=== PATIENT | female | born 1970 ===

== ENCOUNTER 2017-04-19 23:31 | Emergency (ER) | payer OTHER ==
[2017-04-20] MEDS ORDERED: Aspirin 325 mg EC Tablets PO STA (00:14)
--- NOTE | 2017-04-20 00:14 | C.PDOC ---
History Of Present Illness Patient presents to the ER with a complaint of chest pain, feeling anxious, and feeling like her blood pressure is high. Patient is speaking in complete sentences; denies fever, chills, or palpitations. Time Seen by Provider: 04/20/17 00:13 Chief Complaint (Nursing): Chest Pain History Per: Patient History/Exam Limitations: no limitations Onset/Duration Of Symptoms: Hrs Current Symptoms Are (Timing): Still Present Severity: Moderate Pain Scale Rating Of: 4 Associated Symptoms: denies: Nausea, Dyspnea, Syncope Modifying Factors: None Exacerbating Factors: None Alleviating Factors: None Recent travel outside of the [place]: No Past Medical History Reviewed: Historical Data, Nursing Documentation, Vital Signs Vital Signs: Last Vital Signs Temp 98.3 F 04/19/17 23:47 Pulse 70 04/19/17 23:47 Resp 22 04/19/17 23:47 BP 164/72 H 04/19/17 23:47 Pulse Ox 95 04/20/17 00:48 - Medical History PMH: HTN Surgical History: No Surg Hx Family History: States: No Known Family Hx - Social History Hx Alcohol Use: No Hx Substance Use: No - Immunization History Hx Tetanus Toxoid Vaccination: No Hx Influenza Vaccination: No Hx Pneumococcal Vaccination: No Review Of Systems Constitutional: Negative for: Fever, Chills Cardiovascular: Positive for: Chest Pain. Negative for: Palpitations Psych: Positive for: Anxiety Physical Exam - Physical Exam Appears: Non-toxic, No Acute Distress, Other (Anxious) Skin: Warm, Dry Head: Normacephalic Eye(s): bilateral: Normal Inspection Oral Mucosa: Moist Neck: Supple Chest: Symmetrical, No Tenderness Cardiovascular: Rhythm Regular, No Murmur Respiratory: No Rales, No Rhonchi, No Wheezing Gastrointestinal/Abdominal: Soft, No Tenderness Back: No CVA Tenderness Extremity: No Tenderness Extremity: Bilateral: Atraumatic Pulses: Left Dorsalis Pedis: Normal, Right Dorsalis Pedis: Normal Neurological/Psych: Oriented x3, Normal Speech, Normal Cognition Gait: Steady ED Course And Treatment - Laboratory Results Result Diagrams: 04/20/17 00:27 04/20/17 00:27 ECG: Interpreted By Me, Viewed By Me ECG Rhythm: Sinus Rhythm (66), ST/T Changes (inf lat) O2 Sat by Pulse Oximetry: 95 Pulse Ox Interpretation: Normal - Radiology CXR: Interpreted by Me, Viewed By Me CXR Interpretation: Yes: Other (breast implants). No: Infiltrates, Fracture, Pnemothorax Progress Note: cardiac work up, asa Reevaluation Time: 01:53 Reassessment Condition: Improved Medical Decision Making Medical Decision Making: Upon provider reevaluation patient is feeling better, is medically stable, and requires no further treatment in the ED at this time. Patient will be discharged home with Rx for albuterol . Counseling was provided and all questions were answered regarding diagnosis and need for follow up with the referred clinic. There is agreement to discharge plan. Return if symptoms persist or worsen. I considered the following diagnoses: acute coronary syndrome, pulmonary embolism, lower respiratory infection, aortic dissection/aneurysm, pneumothorax , pericarditis, esophagitis/GERD, zoster and esophageal rupture but found them to be unlikely based on the history, physical exam, and diagnostics. My conclusions regarding the unlikely diagnoses were based on: the absence of significant EKG abnormalities, the lack of suggestive x-ray findings, the absence of significant abnormalities on cardiac monitoring, the absence of asymmetric pulses. Pt feels much better. no cp, and wants to go home Disposition Counseled Patient/Family Regarding: Studies Performed, Diagnosis, Need For Followup, Rx Given - Disposition Referrals: [facility] at [facility] [Outside] Disposition: HOME/ ROUTINE Disposition Time: 00:14 Condition: FAIR Prescriptions: Albuterol 0.083% [Albuterol Sulfate 3 Ml] 3 ml IH QID PRN #50 neb PRN Reason: Wheezing Instructions: Asthma (DC), Anxiety (ED) Print Language: UZBEK - Clinical Impression Clinical Impression: Asthma, Anxiety, Chest pain - Scribe Statement The provider has reviewed the documentation as recorded by the Scribpoli Uribe All medical record entries made by the Scribe were at my direction and personally dictated by me. I have reviewed the chart and agree that the record accurately reflects my personal performance of the history, physical exam, medical decision making, and the department course for this patient. I have also personally directed, reviewed, and agree with the discharge instructions and disposition.
[2017-04-20 00:34] LABS: BASO % 0.4 % (0.0-2.0); EOS # 0.1 K/uL (0.0-0.7); EOS % 1.3 % (0.0-4.0); LYMPH # 2.4 K/uL (1.0-4.3); LYMPH % 24.4 % (20.0-40.0); MEAN CELL VOLUME 84.5 fL (81.0-99.0); MEAN CORPUSCULAR HEMOGLOBIN 27.6 pg (27.0-31.0); MEAN CORPUSCULAR HGB CONC 32.6 g/dL (33.0-37.0); MEAN PLATELET VOLUME 9.2 fL (7.2-11.7); MONO # 0.7 K/uL (0.0-0.8); MONO % 7.2 % (0.0-10.0); NEUT # 6.6 K/uL (1.8-7.0); NEUT % 66.7 % (50.0-75.0); RBC 3.98 Mil/uL (3.80-5.20); RED CELL DISTRIBUTION WIDTH 17.8 % (11.5-14.5); WHITE BLOOD COUNT 9.9 K/uL (4.8-10.8)
[2017-04-20] MEDS ORDERED: Aspirin 325 mg EC Tablets PO ONE (00:34)
[2017-04-20 00:39] LABS: INR 1.1; PROTHROMBIN TIME 12.2 SECONDS (9.7-12.2)
[2017-04-20 00:55] LABS: ALBUMIN 4.3 g/dL (3.5-5.0)
[2017-04-20 00:58] LABS: ALB/GLOB RATIO 1.2 (1.0-2.1); ALT/SGPT 13 U/L (9-52); AST/SGOT 25 U/L (14-36); BLOOD UREA NITROGEN 19 mg/dL (7-17); GFR AFRICAN-AMERICAN > 60; GFR NON-AFRICAN AMERICAN > 60
[2017-04-20 01:00] LABS: B-TYPE NATRIURETIC PEPTIDE 91.6 pg/mL (0-450)
[2017-04-20] MEDS ORDERED: Albuterol-Ipratrop 3 mg / 0.5 (3 ml) UD IH STA (01:16)
[2017-04-20 02:05] VITALS: BP 119/72; PULSE 65; RESP 16; TEMP 97; O2SAT 97
--- NOTE | 2017-04-20 07:07 | RAD ---
HISTORY: chest pain COMPARISON: No prior. TECHNIQUE: Chest PA and lateral FINDINGS: LUNGS: Prominent bibasilar breast and nipple shadows. Mild venous congestion. PLEURA: No significant pleural effusion identified. No pneumothorax apparent. CARDIOVASCULAR: Normal. OSSEOUS STRUCTURES: No significant abnormalities. VISUALIZED UPPER ABDOMEN: Normal. OTHER FINDINGS: None. IMPRESSION: Prominent bibasilar breast and nipple shadows. Mild venous congestion.
--- NOTE | 2017-04-21 13:38 | CARD ---
APPROVED REPORT EKG Measurement Heart [id number] <Conclusion> Normal sinus rhythm T wave abnormality, consider inferolateral ischemia Abnormal ECG
== END 2017-04-20 02:05 | disposition home or self-care (01) ==
LOC: C.ER 23:31
DX: J45.909 Unspecified asthma, uncomplicated (principal); F41.9 Anxiety disorder, unspecified; R07.9 Chest pain, unspecified

== ENCOUNTER 2019-03-02 09:17 | Emergency (ER) | payer OTHER ==
[2019-03-02] MEDS ORDERED: Aluminum Hydroxide/Magnesium Hydroxide Susp (30 mL) ONE (09:44)
[2019-03-02] MEDS ORDERED: Sodium Chloride 0.9% 1,000 ML IV ONE (11:07)
[2019-03-02 11:18] LABS: BASO # 0.1 K/uL (0.0-0.2); BASO % 1.2 % (0.0-2.0); EOS # 0.2 K/uL (0.0-0.7); EOS % 3.4 % (0.0-4.0); HEMOGLOBIN 11.6 g/dL (11.0-16.0); LYMPH # 2.1 K/uL (1.0-4.3); LYMPH % 44.1 % (20.0-40.0); MEAN CELL VOLUME 82.7 fL (81.0-99.0); MEAN CORPUSCULAR HEMOGLOBIN 26.8 pg (27.0-31.0); MEAN CORPUSCULAR HGB CONC 32.4 g/dL (33.0-37.0); MEAN PLATELET VOLUME 9.5 fL (7.2-11.7); MONO # 0.4 K/uL (0.0-0.8); MONO % 8.4 % (0.0-10.0); NEUT # 2.1 K/uL (1.8-7.0); NEUT % 42.9 % (50.0-75.0); NRBC % 0.1 % (0.0-2.0); RBC 4.34 Mil/uL (3.80-5.20); RED CELL DISTRIBUTION WIDTH 19.5 % (11.5-14.5); WHITE BLOOD COUNT 4.8 K/uL (4.8-10.8)
[2019-03-02 11:22] LABS: SQUAMOUS EPITHIAL 14 /hpf (0-5); URINE BILIRUBIN NEGATIVE (NEGATIVE); URINE BLOOD NEGATIVE (NEGATIVE); URINE CLARITY Hazy (Clear); URINE COLOR Yellow (YELLOW); URINE GLUCOSE (UA) NORMAL (Normal); URINE LEUKOCYTE ESTERASE 1+ Leu/uL (Negative); URINE PROTEIN NEGATIVE (NEGATIVE); URINE UROBILINOGEN NORMAL mg/dL (0.2-1.0)
[2019-03-02 11:31] LABS: ALB/GLOB RATIO 1.4 (1.0-2.1); ALBUMIN 4.6 g/dL (3.5-5.0); ALT/SGPT 47 U/L (9-52); AST/SGOT 73 U/L (14-36); BLOOD UREA NITROGEN 17 mg/dL (7-17); GFR NON-AFRICAN AMERICAN > 60; LIPASE 66 U/L (23-300)
--- NOTE | 2019-03-02 13:46 | C.PDOC ---
History Of Present Illness 48 y/o female presents to the ER complaining of intermittent lower abdominal pain which has been present for the past few days. Patient states that she history of ovarian cyst which was diagnosed in [place]. Patient reports that she also has history of HTN but she is not taking medications for six years. Denies having fever, chills, nausea, vomiting, dysuria, and hematuria. Time Seen by Provider: 03/02/19 10:02 Chief Complaint (Nursing): Abdominal Pain History Per: Patient History/Exam Limitations: no limitations Onset/Duration Of Symptoms: Days Current Symptoms Are (Timing): Still Present Severity: Moderate Past Medical History Reviewed: Historical Data, Nursing Documentation, Vital Signs Vital Signs: Last Vital Signs Temp 97.9 F 03/02/19 10:16 Pulse 66 03/02/19 13:33 Resp 15 03/02/19 13:33 BP 176/95 H 03/02/19 13:33 Pulse Ox 98 03/02/19 13:33 Primary Care Provider: FAMILY PROVIDER,NO - Medical History PMH: HTN Other Surgeries: Hx of surgeries Family History: States: No Known Family Hx - Social History Hx Alcohol Use: No Hx Substance Use: No - Immunization History Hx Tetanus Toxoid Vaccination: No Hx Influenza Vaccination: No Hx Pneumococcal Vaccination: No Review Of Systems Except As Marked, All Systems Reviewed And Found Negative. Constitutional: Negative for: Fever, Chills Gastrointestinal: Positive for: Abdominal Pain. Negative for: Nausea, Vomiting, Diarrhea Genitourinary: Negative for: Dysuria, Hematuria, Vaginal Bleeding Physical Exam - Physical Exam Appears: Non-toxic, No Acute Distress Skin: Normal Color, Warm, Dry Head: Atraumatic, Normacephalic Eye(s): bilateral: Normal Inspection, PERRL, EOMI Nose: Normal Oral Mucosa: Moist Neck: Normal ROM, Supple Chest: Symmetrical Cardiovascular: Rhythm Regular Respiratory: Normal Breath Sounds, No Rales, No Rhonchi, No Wheezing Gastrointestinal/Abdominal: Bowel Sounds, Soft, Tenderness (LLQ tenderness), No Guarding, No Rebound Back: No CVA Tenderness Neurological/Psych: Oriented x3, Normal Speech, Normal Cognition, Normal Motor, Normal Sensation ED Course And Treatment - Laboratory Results Result Diagrams: 03/02/19 11:15 03/02/19 11:15 Lab Results: Total Bilirubin 0.5 mg/dL (0.2-1.3) 05/21/19 11:15 AST 73 U/L (14-36) H 03/02/19 11:15 ALT 47 U/L (9-52) 03/02/19 11:15 Alkaline Phosphatase 78 U/L (38-126) 03/02/19 11:15 Total Protein 7.8 g/dL (6.3-8.3) 03/02/19 11:15 Albumin 4.6 g/dL (3.5-5.0) 03/02/19 11:15 Globulin 3.3 gm/dL (2.2-3.9) 03/02/19 11:15 Albumin/Globulin Ratio 1.4 (1.0-2.1) 03/02/19 11:15 Lipase 66 U/L (23-300) 03/02/19 11:15 Urine Color Yellow (YELLOW) 03/02/19 11:15 Urine Clarity Hazy (Clear) 03/02/19 11:15 Urine pH 7.0 (5.0-8.0) 03/02/19 11:15 Ur Specific [place] 1.019 (1.003-1.030) 03/02/19 11:15 Urine Protein Negative mg/dL (NEGATIVE) 03/02/19 11:15 Urine Glucose (UA) Normal mg/dL (Normal) 03/02/19 11:15 Urine Ketones Negative mg/dL (NEGATIVE) 03/02/19 11:15 Urine Blood Negative (NEGATIVE) 03/02/19 11:15 Urine Nitrate Negative (NEGATIVE) 03/02/19 11:15 Urine Bilirubin Negative (NEGATIVE) 03/02/19 11:15 Urine Urobilinogen Normal mg/dL (0.2-1.0) 03/02/19 11:15 Ur Leukocyte Esterase 1+ Stephanie/uL (Negative) H 03/02/19 11:15 Urine WBC (Auto) 9 /hpf (0-5) H 03/02/19 11:15 Urine RBC (Auto) 2 /hpf (0-3) 03/02/19 11:15 Ur Squamous Epith Cells 14 /hpf (0-5) H 03/02/19 11:15 Beta HCG, Quant < 2.39 mIU/ML 03/02/19 11:15 O2 Sat by Pulse Oximetry: 98 (RA) Pulse Ox Interpretation: Normal Medical Decision Making Medical Decision Making: Plan: --Labs --UA --EKG --IV Fluids --Hydralazine IV Disposition Counseled Patient/Family Regarding: Studies Performed, Diagnosis, Need For Foll owup - Disposition Referrals: [facility] at [facility] [Outside] Disposition: HOME/ ROUTINE Disposition Time: 15:07 Condition: IMPROVED Instructions: High Blood Pressure (DC), Acute Abdomen (Belly Pain), Adult (DC) Forms: Gen Discharge Inst Belarusian, [employer] (Belarusian) Print Language: LATVIAN - POA Present On Arrival: None - Clinical Impression Clinical Impression: Abdominal pain, Hypertension, Non compliance with medical treatment - Scribe Statement The provider has reviewed the documentation as recorded by the Rafaelibpoli Aviles Provider Attestation: All medical record entries made by the Rafaelibe were at my direction and personally dictated by me. I have reviewed the chart and agree that the record accurately reflects my personal performance of the history, physical exam, medical decision making, and the department course for this patient. I have also personally directed, reviewed, and agree with the discharge instructions and disposition.
[2019-03-02 15:00] VITALS: O2SAT 98
[2019-03-02 15:21] VITALS: BP 157/88; PULSE 77; RESP 16; TEMP 98
--- NOTE | 2019-03-04 00:05 | CARD ---
APPROVED REPORT Date of service: 03/02/2019 EKG Measurement Heart [id number] <Conclusion> Normal sinus rhythm Possible Left atrial enlargement Left ventricular hypertrophy with repolarization abnormality Abnormal ECG
== END 2019-03-02 15:21 | disposition home or self-care (01) ==
LOC: C.ER 09:17
DX: R10.9 Unspecified abdominal pain (principal); I10 Essential (primary) hypertension; Z91.14 Patient's other noncompliance with medication regimen
CPT/HCPCS: 80053; 81001; 83690; 84702; 85025; 93005; 96374; 96376; 99285; J0360; J7030

== ENCOUNTER 2019-03-02 17:06 | Observation (INO) | payer SELFPAY ==
[2019-03-02 17:12] VITALS: BMI 27.4
[2019-03-02] MEDS ORDERED: Sodium Chloride 0.9% 1,000 ML IV ONE (17:34)
[2019-03-02] MEDS ORDERED: Sodium Chloride 0.9% 1,000 ML ONE (17:49)
[2019-03-02 18:09] LABS: BASO % 0.5 % (0.0-2.0); EOS # 0.1 K/uL (0.0-0.7); EOS % 0.9 % (0.0-4.0); HEMOGLOBIN 13.5 g/dL (11.0-16.0); LYMPH # 1.8 K/uL (1.0-4.3); LYMPH % 18.4 % (20.0-40.0); MEAN CELL VOLUME 84.4 fL (81.0-99.0); MEAN CORPUSCULAR HEMOGLOBIN 27.3 pg (27.0-31.0); MEAN CORPUSCULAR HGB CONC 32.3 g/dL (33.0-37.0); MEAN PLATELET VOLUME 9.4 fL (7.2-11.7); MONO # 0.5 K/uL (0.0-0.8); MONO % 5.5 % (0.0-10.0); NEUT # 7.1 K/uL (1.8-7.0); NEUT % 74.7 % (50.0-75.0); RBC 4.95 Mil/uL (3.80-5.20); RED CELL DISTRIBUTION WIDTH 19.9 % (11.5-14.5)
[2019-03-02 18:23] LABS: WHITE BLOOD COUNT 9.5 K/uL (4.8-10.8)
[2019-03-02 18:31] LABS: ALB/GLOB RATIO 1.4 (1.0-2.1); ALBUMIN 5.3 g/dL (3.5-5.0); ALT/SGPT 50 U/L (9-52); AST/SGOT 82 U/L (14-36); BLOOD UREA NITROGEN 15 mg/dL (7-17); CALCIUM 9.6 mg/dl (8.6-10.4); GFR NON-AFRICAN AMERICAN > 60; LIPASE 62 U/L (23-300)
--- NOTE | 2019-03-02 18:47 | C.PDOC ---
History Of Present Illness 48 y/o female,w/PMhx of HTN non compliant w/meds, presents to the ER for evaluation of frontal headache and dizziness which began after she was discharged from ER today.Patient was evaluated for abdominal pain in ER and discharged today. Upon discharge patient had no c/o abdominal pain or headache. Patient reports that she was standing at the bus stop when she began feeling dizzy and fell to the ground.Then, she started to vomit. Patient states lower abdominal pain has returned. Patient denies having head injury, LOC, neck pa in/stiffness, fever,chills, urinary symptoms, vaginal discharge or other complaints at this time. Time Seen by Provider: 03/02/19 17:33 Chief Complaint (Nursing): GI Problem History Per: Patient History/Exam Limitations: no limitations Onset/Duration Of Symptoms: Mins Current Symptoms Are (Timing): Still Present Severity: Moderate Past Medical History Reviewed: Historical Data, Nursing Documentation, Vital Signs Vital Signs: Last Vital Signs Temp 97.4 F L 03/02/19 17:12 Pulse 64 03/02/19 17:12 Resp 18 03/02/19 17:12 BP 216/111 H 03/02/19 17:12 Pulse Ox 97 03/02/19 17:12 Primary Care Provider: FAMILY PROVIDER,NO - Medical History PMH: HTN Other Surgeries: Hx of surgeries Family History: States: No Known Family Hx - Social History Hx Alcohol Use: No Hx Substance Use: No - Immunization History Hx Tetanus Toxoid Vaccination: No Hx Influenza Vaccination: No Hx Pneumococcal Vaccination: No Review Of Systems Except As Marked, All Systems Reviewed And Found Negative. Constitutional: Negative for: Fever, Chills Cardiovascular: Negative for: Chest Pain Respiratory: Negative for: Shortness of Breath Gastrointestinal: Positive for: Vomiting, Abdominal Pain Neurological: Positive for: Headache, Dizziness Physical Exam - Physical Exam Appears: Well, Non-toxic, No Acute Distress Skin: Normal Color, Warm, Dry Head: Atraumatic, Normacephalic Eye(s): bilateral: Normal Inspection, PERRL, EOMI Nose: Normal Oral Mucosa: Moist Neck: Normal ROM, Supple Chest: Symmetrical Cardiovascular: Rhythm Regular, No Murmur Respiratory: Normal Breath Sounds, No Rales, No Rhonchi, No Wheezing Gastrointestinal/Abdominal: Soft, Tenderness (mild lower abdominal tenderness to deep palpation), No Guarding, No Rebound Back: No CVA Tenderness Extremity: Normal ROM, No Pedal Edema Neurological/Psych: Oriented x3, Normal Speech, Normal Cognition, Normal Cranial Nerves, No Cerebellar Signs, Normal Motor, Normal Sensation Gait: Steady ED Course And Treatment - Laboratory Results Result Diagrams: 03/02/19 18:03 03/02/19 18:03 Lab Results: Troponin I < 0.0120 ng/mL (0.00-0.120) 03/02/19 18:03 Total Bilirubin 0.9 mg/dL (0.2-1.3) 03/02/19 18:03 AST 82 U/L (14-36) H 03/02/19 18:03 ALT 50 U/L (9-52) 03/02/19 18:03 Alkaline Phosphatase 104 U/L (38-126) 03/02/19 18:03 Total Protein 9.2 g/dL (6.3-8.3) H 03/02/19 18:03 Albumin 5.3 g/dL (3.5-5.0) H 03/02/19 18:03 Globulin 3.9 gm/dL (2.2-3.9) 03/02/19 18:03 Albumin/Globulin Ratio 1.4 (1.0-2.1) 03/02/19 18:03 Lipase 62 U/L (23-300) 03/02/19 18:03 ECG: Interpreted By Me ECG Interpretation: Abnormal Interpretation Of ECG: LVH w/repol abnormalities Rate From EC O2 Sat by Pulse Oximetry: 97 (RA) Pulse Ox Interpretation: Normal Medical Decision Making Medical Decision Making: Plan: --Labs --UA --CXR --US --IV Fluids --Toradol IV --Zofran IV --Hydralazine IV -- reassess 19:30 Patient signed out to Dr. Schulz pending CT head, pelvic ultrasound, reassessment and disposition. Disposition Counseled Patient/Family Regarding: Studies Performed, Diagnosis - Disposition Disposition Time: 19:30 Condition: STABLE Forms: [facility] (Azeri) - Clinical Impression Clinical Impression: Abdominal pain, Uncontrolled hypertension, Dizziness - Scribe Statement The provider has reviewed the documentation as recorded by the Damaso Aviles Provider Attestation: All medical record entries made by the Rafaelibpoli were at my direction and personally dictated by me. I have reviewed the chart and agree that the record accurately reflects my personal performance of the history, physical exam, medical decision making, and the department course for this patient. I have also personally directed, reviewed, and agree with the discharge instructions and disposition.
[2019-03-02] MEDS ORDERED: Potassium Chloride 20 mEq/15 ml LIQ UD PO STA (22:01)
--- NOTE | 2019-03-02 22:07 | CP.PCM.CON ---
History of Present Illness - History of Present Illness History of Present Illness: Asked to see this patient by DR. Kirkpatrick: 1.43 cm left ovarian cyst, LLQ pain. Patient received in E.D. Bed#7, sister present, being evaluated by primary Medical Team, in no apparent distress 48 y.o. , LMP 01/20/19 x 1 day, admitted for management of HTN (second visit to E.D. in 24 hours) - elevated BP 184/96 at time of my evaluation in the setting of headache and dizziness. Patient reports (+) nausea, vomiting - good appetite. Normal BM; no report of diarrhea or constipation. Reports LLQ pain x 1 day, described as pain similar to mentrual cramps, pain scale 10/10 earlier today; now improved. TV ultrasound: uterus, 10 x 5 x 6.16 cm, no fibroids; endometrium 1.15cm. Left ovary 3 x 2.21 x 2.53cm with 1.43 x 0.86 [address], "free fluid in right adnexa". Right ovary not seen. P OB: C/Sx1, 1997, female; x 3: 1999, male; 2001, male; 2009, female. NO complications. P STUDIO PRODUCER: 10 x monthly x 4. Denies h/o fibroids; told of ovarian cyst 1 year ago. Denies h/o STIs or abnormal Pap. Last Pap and mammogram - 1 year ago - [place]. (+) hot flashes and sweats x 1 year. Menses irregular x 1 year - every one to 2 or 3 months; lasting only 1 day. PMH: HTN, diagnosed approx 2010 PSH: C/S. "tummy tuck" with breast augmentation, 2009. Meds: doesn't recall name of anti-hypertensive NKDA Soc Hx: denies tobaco, illicit drug or EtOH use. x 1 year; with same partner 19 years. Homemaker Fam Hx: mother age 92 - complicaitonsof HTN. Father age 73 - colon CA. Review of Systems - Review of Systems All systems: reviewed and no additional remarkable complaints except - Gastrointestinal Gastrointestinal: As Per HPI Past Patient History - Infectious Disease Hx of Infectious Diseases: None - Past Medical History & Family History Past Medical History?: No Pertinent Family History: Mother - HTN Father - colon cancer - Past Social History Smoking Status: Never Smoked - CARDIAC Hx Hypertension: Yes - PSYCHIATRIC Hx Substance Use: No - SURGICAL HISTORY Hx Surgeries: Yes Other/Comment: Breast augmentation, abdominoplasty/ tummy tuck. Meds Allergies/Adverse Reactions: Allergies Allergy/AdvReac Type Severity Reaction Status Date / Time No Known Allergies Allergy Verified 03/02/19 17:11 - Medications Medications: Current Medications Diltiazem HCl (Cardizem) 10 mg IVP STAT STA Stop: 03/02/19 21:47 Physical Exam - Constitutional Appears: Well, No Acute Distress - Head Exam Head Exam: NORMAL INSPECTION, NORMOCEPHALIC - ENT Exam ENT Exam: Mucous Membranes Moist - Neck Exam Neck exam: Positive for: Full Rom - Respiratory Exam Respiratory Exam: NORMAL BREATHING PATTERN - Cardiovascular Exam Cardiovascular Exam: REGULAR RHYTHM - GI/Abdominal Exam GI & Abdominal Exam: Normal Bowel Sounds (Minimal LLQ pain to deep palpation; no rebound or guarding), Soft - Rectal Exam Rectal Exam: Deferred - Exam External exam: NORMAL EXTERNAL EXAM Results - Vital Signs Recent Vital Signs: Last Vital Signs Temp 97.4 F L 03/02/19 17:12 Pulse 71 03/02/19 21:04 Resp 16 03/02/19 21:04 BP 180/96 H 03/02/19 21:04 Pulse Ox 99 03/02/19 21:04 - Labs Result Diagrams: 03/02/19 18:03 03/02/19 18:03 Labs: Laboratory Results - last 24 hr 03/02/19 03/02/19 18:03 18:03 WBC 9.5 D RBC 4.95 Hgb 13.5 Hct 41.8 MCV 84.4 MCH 27.3 MCHC 32.3 L RDW 19.9 H Plt Count 386 MPV 9.4 Neut % (Auto) 74.7 Lymph % (Auto) 18.4 L [place] % (Auto) 5.5 Eos % (Auto) 0.9 Baso % (Auto) 0.5 Neut # (Auto) 7.1 H Lymph # (Auto) 1.8 [place] # (Auto) 0.5 Eos # (Auto) 0.1 Baso # (Auto) 0.0 Sodium 140 Potassium 3.4 L Chloride 101 Carbon Dioxide 24 Anion Gap 19 BUN 15 Creatinine 0.8 Est GFR ( Amer) > 60 Est GFR (Non-Af Amer) > 60 Random Glucose 177 H D Calcium 9.6 Total Bilirubin 0.9 AST 82 H ALT 50 Alkaline Phosphatase 104 Troponin I < 0.0120 Total Protein 9.2 H Albumin 5.3 H Globulin 3.9 Albumin/Globulin Ratio 1.4 Lipase 62 Assessment & Plan - Assessment and Plan (Free Text) Assessment: :Laboratory results and ultrasound reports reviewed by me personally Assessment: 48 y.o. P4, uncontrolled HTN - admitted for management of same, with headache. Patient is perimenopausal, with incidental finding small left ovarian cyst, small amount of free fluid. LLQ pain most likely due to probable menses onset suggested by thickened endometrium. No acute fire protection engineer intervention indicated at this time. Patient is clinically stable; advised to follow up with STUDIO PRODUCER as outpatient upon discharge. Patient has received fire protection engineer care to date in [place]. Consider referral to associated clinics - [facility], [facility], private STUDIO PRODUCER, etc. Plan: 1) as per primary medical team 2) Re-consult, if indicated Thank you for the pleasure of this consultation. - Date & Time Date: 03/02/19 Time: 22:19
--- NOTE | 2019-03-02 22:11 | CP.PCM.HP ---
<Amor Mckeon - Last Filed: 03/02/19 23:08> History of Present Illness - History of Present Illness History of Present Illness: 48F presents to the ER for second time today complaining of Headaches, dizziness, hazy vision/aura and photosensitivity. Pt recieved Hydralizine x2 and had some improvement, was discharged but then had an acute recurrence of the headache when getting on the bus. Pt returned with an SBP of over 200 and was given Hydralazine 20 IVP which gave her minor relief. Pt also reports minor relief with the Toradol. Pt had came in earlier today also complaining of lower abdominal pain which has now resolved. Patient states that she history of ovarian cyst which was diagnosed in [place]. Patient reports that she also has history of HTN but she is not taking medications. ROS Pos+ Headache, Dizziness, Aura, hazy vision, photosensitivity, medication non compliance, poor medical follow up Neg- Nausea, Vomiting, syncope, memory/mood changes, fevers, chills, chest pain, SOB, medication changes, sick contacts, numbness, tingling, speech changes, facial droop, hallucinations. PMH: HTN dx 2010 PSH: abdominoplasty with breast augmentation, 2009. Allergies: Denies Soc Hx: denies tobaco/drugs/EtOH Fam Hx: Mom HTN, Dad Colon CA Present on Admission - Present on Admission Any Indicators Present on Admission: No Review of Systems - Review of Systems All systems: reviewed and no additional remarkable complaints except (as per HPI) Past Patient History - Past Social History Smoking Status: Never Smoked - CARDIAC Hx Hypertension: Yes - PSYCHIATRIC Hx Substance Use: No - SURGICAL HISTORY Hx Surgeries: Yes Other/Comment: Breast augmentation, abdominoplasty/ tummy tuck. Meds Allergies/Adverse Reactions: Allergies Allergy/AdvReac Type Severity Reaction Status Date / Time No Known Allergies Allergy Verified 03/02/19 17:11 Physical Exam - Constitutional Appears: Non-toxic, No Acute Distress - Head Exam Head Exam: ATRAUMATIC, NORMAL INSPECTION Additional comments: pain with jose temporalis and frontalis palpation/ compression - Eye Exam Eye Exam: EOMI, Normal appearance, PERRL. absent: Nystagmus, Scleral icterus Pupil Exam: PERRL - ENT Exam ENT Exam: Mucous Membranes Moist - Neck Exam Neck exam: Positive for: Normal Inspection. Negative for: Meningismus - Respiratory Exam Respiratory Exam: Clear to Auscultation Bilateral, NORMAL BREATHING PATTERN. absent: Wheezes - Cardiovascular Exam Cardiovascular Exam: RRR, +S1, +S2 - GI/Abdominal Exam GI & Abdominal Exam: Soft. absent: Distended, Tenderness - Exam Additional comments: no adenexal tenderness - Extremities Exam Extremities exam: Positive for: normal inspection, pedal pulses present. Negative for: pedal edema, tenderness - Neurological Exam Neurological exam: Alert, CN II-XII Intact, Oriented x3 Additional comments: neg head impulse sign pos photosensitivity sensation intact no facial droop - Psychiatric Exam Psychiatric exam: Normal Affect, Normal Mood - Skin Skin Exam: Dry, Intact, Normal Color, Warm Results - Vital Signs Recent Vital Signs: Last Vital Signs Temp 97.4 F L 03/02/19 17:12 Pulse 71 03/02/19 21:04 Resp 16 03/02/19 21:04 BP 180/96 H 03/02/19 21:04 Pulse Ox 99 03/02/19 21:04 - Labs Result Diagrams: 03/02/19 18:03 03/02/19 18:03 Labs: Laboratory Results - last 24 hr 03/02/19 03/02/19 18:03 18:03 WBC 9.5 D RBC 4.95 Hgb 13.5 Hct 41.8 MCV 84.4 MCH 27.3 MCHC 32.3 L RDW 19.9 H Plt Count 386 MPV 9.4 Neut % (Auto) 74.7 Lymph % (Auto) 18.4 L Sharp % (Auto) 5.5 Eos % (Auto) 0.9 Baso % (Auto) 0.5 Neut # (Auto) 7.1 H Lymph # (Auto) 1.8 Sharp # (Auto) 0.5 Eos # (Auto) 0.1 Baso # (Auto) 0.0 Sodium 140 Potassium 3.4 L Chloride 101 Carbon Dioxide 24 Anion Gap 19 BUN 15 Creatinine 0.8 Est GFR ( Amer) > 60 Est GFR (Non-Af Amer) > 60 Random Glucose 177 H D Calcium 9.6 Total Bilirubin 0.9 AST 82 H ALT 50 Alkaline Phosphatase 104 Troponin I < 0.0120 Total Protein 9.2 H Albumin 5.3 H Globulin 3.9 Albumin/Globulin Ratio 1.4 Lipase 62 Assessment & Plan - Assessment and Plan (Free Text) Assessment: 48F admitted for acute hypertensive urgency and migraine Plan: Hypertensive Urgency Hydralazine total 40mg given Cardizem 10mg IVP once Lopressor 5mg for SBP >160 or HR above 100 Monitor Migraine w/ Aura Indomethicin 50mg STAT PO given, Pt improved markedly Toradol 30 IVP q[address]: f/u report LLQ Pain, Ovarian Cyst Dr Porras [facility] consulted ovarian cyst, small amount of free fluid. LLQ pain most likely due to probable menses onset suggested by thickened endometrium. No acute lapidarist intervention indicated at this time. Zofran 4mg q4 IVP prn nausea/abd pain TransVag US: f/u report Hypokalemia 40meq KCL given f/u CMP Non-Compliance f/u UDS, TSH, Lipids, A1C Pt educated on establishing care at [facility] PPx HHD No Anticoag at this time no GI ppx at this time CK PGY1 d/w Dr Kirkpatrick <Zohaib Kirkpatrick N - Last Filed: 03/03/19 04:42> Results - Vital Signs Recent Vital Signs: Last Vital Signs Temp 97.9 F 03/02/19 23:15 Pulse 65 03/03/19 01:00 Resp 20 03/02/19 23:15 BP 172/86 H 03/02/19 23:15 Pulse Ox 97 03/02/19 23:15 - Labs Result Diagrams: 03/02/19 18:03 03/02/19 18:03 Labs: Laboratory Results - last 24 hr 03/02/19 03/02/19 03/03/19 18:03 18:03 01:02 WBC 9.5 D RBC 4.95 Hgb 13.5 Hct 41.8 MCV 84.4 MCH 27.3 MCHC 32.3 L RDW 19.9 H Plt Count 386 MPV 9.4 Neut % (Auto) 74.7 Lymph % (Auto) 18.4 L Sharp % (Auto) 5.5 Eos % (Auto) 0.9 Baso % (Auto) 0.5 Neut # (Auto) 7.1 H Lymph # (Auto) 1.8 Sharp # (Auto) 0.5 Eos # (Auto) 0.1 Baso # (Auto) 0.0 ESR 14 Sodium 140 Potassium 3.4 L Chloride 101 Carbon Dioxide 24 Anion Gap 19 BUN 15 Creatinine 0.8 Est GFR ( Amer) > 60 Est GFR (Non-Af Amer) > 60 Random Glucose 177 H D Calcium 9.6 Total Bilirubin 0.9 AST 82 H ALT 50 Alkaline Phosphatase 104 Troponin I < 0.0120 Total Protein 9.2 H Albumin 5.3 H Globulin 3.9 Albumin/Globulin Ratio 1.4 Lipase 62 Attending/Attestation - Attestation I have fully participated in the care of the patient.: Yes I have reviewed all pertinent clinical information: Yes Notes (Text): 03/03/19 04:42 pt was seen and managed with resident.
[2019-03-02] MEDS ORDERED: Potassium Chloride 20 mEq/15 ml LIQ UD ONE (22:30)
[2019-03-02 22:51] VITALS: RESP 20
[2019-03-03] MEDS ORDERED: Metoprolol 1 mg/ml Inj IVP PRN (06:27)
--- NOTE | 2019-03-03 07:30 | CT ---
Date of service: 03/02/2019 PROCEDURE: CT HEAD WITHOUT CONTRAST. HISTORY: Dizziness. Hypertension. COMPARISON: None available. TECHNIQUE: Axial computed tomography images were obtained through the head/brain without intravenous contrast. Radiation dose: Total exam DLP = 1175.83 mGy-cm. This CT exam was performed using one or more of the following dose reduction techniques: Automated exposure control, adjustment of the mA and/or kV according to patient size, and/or use of iterative reconstruction technique. FINDINGS: HEMORRHAGE: No intracranial hemorrhage. BRAIN: No mass effect or edema. No atrophy or chronic microvascular ischemic changes. Small hypodensity seen within the right basal ganglia may represent a prominent perivascular space versus small chronic lacunar infarct. VENTRICLES: Unremarkable. No hydrocephalus. CALVARIUM: Unremarkable. PARANASAL SINUSES: Unremarkable as visualized. No significant inflammatory changes. MASTOID AIR CELLS: Unremarkable as visualized. No inflammatory changes. OTHER FINDINGS: None. IMPRESSION: No acute intracranial abnormality. If symptoms persists, consider correlation with MRI. A preliminary report was generated at 8:33 p.m. on 03/02/[address] Ryan Pelaez from [employer].
[2019-03-03 08:11] LABS: BASO % 0.5 % (0.0-2.0); EOS # 0.1 K/uL (0.0-0.7); EOS % 1.1 % (0.0-4.0); LYMPH % 24.3 % (20.0-40.0); MEAN CELL VOLUME 82.5 fL (81.0-99.0); MEAN CORPUSCULAR HEMOGLOBIN 26.7 pg (27.0-31.0); MEAN CORPUSCULAR HGB CONC 32.4 g/dL (33.0-37.0); MONO # 0.6 K/uL (0.0-0.8); NEUT # 5.3 K/uL (1.8-7.0); NEUT % 66.1 % (50.0-75.0); RBC 4.28 Mil/uL (3.80-5.20); RED CELL DISTRIBUTION WIDTH 19.8 % (11.5-14.5)
[2019-03-03 08:13] LABS: HEMOGLOBIN 11.4 g/dL (11.0-16.0)
[2019-03-03 08:35] LABS: ALB/GLOB RATIO 1.5 (1.0-2.1); ALBUMIN 4.3 g/dL (3.5-5.0); ALT/SGPT 38 U/L (9-52); AST/SGOT 52 U/L (14-36); BLOOD UREA NITROGEN 18 mg/dL (7-17); CALCIUM 9.3 mg/dl (8.6-10.4); GFR NON-AFRICAN AMERICAN 59; HDL CHOLESTEROL 69 mg/dL (30-70); LDL CHOLESTEROL 79 mg/dL (0-129)
--- NOTE | 2019-03-03 08:53 | US ---
Pelvic ultrasound HISTORY: Pelvic pain. Ovarian cyst. COMPARISON: None available. TECHNIQUE: Real-time sonography was performed through the pelvis utilizing transabdominal and transvaginal techniques. FINDINGS: Uterus: 10.1 x 5.0 x 6.2 centimeters. Heterogeneous echotexture. Anteverted. Endometrium is prominent measuring up to 1.33 centimeters. Small amount of free fluid within the pelvic cul-de-sac. Right ovary: Not well visualized. Free fluid adjacent to the right adnexa. Left ovary: 3.0 x 2.2 x 2.5 centimeters. Normal flow. Heterogeneous hypoechoic cyst/cystic lesion in the left ovary measuring up to 1.4 x 0.9 x 1.5 centimeters. Nabothian cysts noted at the level of the cervix. Study limited secondary to patient body habitus. Impression: Study limited secondary to patient body habitus. Right ovary not well visualized. Free fluid in the pelvic cul-de-sac and right adnexa. Heterogeneous hypoechoic left ovarian cyst/cystic lesion measuring 1.5 centimeters. 4-6 week interval follow-up may be helpful if clinically indicated. Prominent endometrium measuring up to 1.33 centimeters. Clinical correlation. Nabothian cysts noted at the level of the cervix. A preliminary report was generated at 8:39 p.m. on 03/02/[address] Ryan Pelaez from [employer]
--- NOTE | 2019-03-03 09:32 | CP.PCM.PN ---
Subjective - Date & Time of Evaluation Date of Evaluation: 03/03/19 Time of Evaluation: 08:00 - Subjective Subjective: Resident Progress Note for Hospitalist Service Patient examined at bedside. No acute events overnight. Reports improvement in headache. Rates severity level to day +5/10 in comparison to +10/10 yesterday. Admits to mild lower abdominal discomfort. Denies fevers, chills, dizziness, chest pain, shortness of breath, diarrhea, dysuria. Objective - Vital Signs/Intake and Output Vital Signs (last 24 hours): Temp Pulse Resp BP Pulse Ox 98.1 F 63 20 179/84 H 99 03/03/19 09:18 03/03/19 09:18 03/03/19 09:18 03/03/19 09:18 03/03/19 09:18 - Medications Medications: Current Medications Amlodipine Besylate (Norvasc) 10 mg PO DAILY BRIELLE Enoxaparin Sodium (Lovenox) 40 mg SC DAILY BRIELLE Hydrochlorothiazide (Hydrodiuril) 25 mg PO DAILY BRIELLE Ketorolac Tromethamine (Toradol) 30 mg IVP Q6 PRN PRN Reason: Pain, severe (8-10) Last Admin: 03/03/19 00:45 Dose: 30 mg Metoprolol Tartrate (Lopressor) 5 mg IVP PRN PRN PRN Reason: Other Ondansetron HCl (Zofran Inj) 4 mg IVP Q4 PRN PRN Reason: Nausea/Vomiting - Labs Labs: 03/03/19 07:57 03/03/19 07:57 - Constitutional Appears: Non-toxic, No Acute Distress - Head Exam Head Exam: ATRAUMATIC, NORMOCEPHALIC - Eye Exam Eye Exam: EOMI, Normal appearance, PERRL. absent: Nystagmus, Scleral icterus - ENT Exam ENT Exam: Mucous Membranes Moist - Neck Exam Neck exam: Positive for: Normal Inspection. Negative for: Meningismus - Respiratory Exam Respiratory Exam: Clear to Auscultation Bilateral, NORMAL BREATHING PATTERN. absent: Wheezes - Cardiovascular Exam Cardiovascular Exam: RRR, +S1, +S2. absent: Tachycardia - GI/Abdominal Exam GI & Abdominal Exam: Soft. absent: Distended, Tenderness - Extremities Exam Extremities exam: Positive for: normal inspection, pedal pulses present. Negative for: pedal edema, tenderness - Neurological Exam Neurological exam: Alert, CN II-XII Intact, Oriented x3 - Psychiatric Exam Psychiatric exam: Normal Affect, Normal Mood - Skin Skin Exam: Dry, Intact, Normal Color Assessment and Plan - Assessment and Plan (Free Text) Assessment: Patient is a 48 year old female with past medical history of hypertension admitted for acute hypertensive urgency and migraine. Plan: Hypertensive urgency - Hydralazine total 40mg given - Cardizem 10mg IVP once - Lopressor 5mg for SBP >160 or HR above 100 Migraine w/ Aura - Indomethicin 50mg STAT PO given - Toradol 30 IVP q6 PRN - Head CT negative for acute intracranial pathology LLQ Pain - Dr Porras [facility] consulted ovarian cyst, small amount of free fluid. LLQ pain most likely due to probable menses onset suggested by thickened endometrium No acute director of retail marketing intervention indicated at this time. - Zofran 4mg q4 IVP PRN - TransVag US: f/u report Hypokalemia - monitor and replete PPX Zina Garcia PGY-1
[2019-03-03] MEDS ORDERED: Enoxaparin 40 mg Syringe SC SCH (10:00)
--- NOTE | 2019-03-03 10:33 | RAD ---
Date of service: 03/02/2019 HISTORY: Abdominal pain COMPARISON: 04/20/2017 TECHNIQUE: Chest PA and lateral FINDINGS: LUNGS: Bibasilar breast and nipple shadows. No gross focal infiltrate or effusion. PLEURA: No significant pleural effusion identified. No pneumothorax apparent. CARDIOVASCULAR: Tortuous ectatic aorta. Mild cardiomegaly. OSSEOUS STRUCTURES: No significant abnormalities. VISUALIZED UPPER ABDOMEN: Normal. OTHER FINDINGS: None. IMPRESSION: No focal infiltrate or effusion. Tortuous and ectatic aorta with mild cardiomegaly. Bibasilar breast and nipple shadows.
--- NOTE | 2019-03-03 14:25 | CP.PCM.DIS ---
Provider - Provider Date of Admission: 03/02/19 21:18 Attending physician: Zohaib Kirkpatrick MD Consults: 03/02/19 21:20 Physician Consult Stat Comment: ovarian cyst Consulting Provider: Savannah Walls Consulting Physician: Savannah Walls Reason for Consult: ovarian cyst Time Spent in preparation of Discharge (in minutes): 35 Diagnosis - Discharge Diagnosis (1) Uncontrolled hypertension Status: Acute (2) Abdominal pain Status: Acute Hospital Course - Lab Results Lab Results: Most Recent Lab Values WBC 8.0 K/uL (4.8-10.8) 03/03/19 07:57 RBC 4.28 Mil/uL (3.80-5.20) 03/03/19 07:57 Hgb 11.4 g/dL (11.0-16.0) D 03/03/19 07:57 Hct 35.3 % (34.0-47.0) 03/03/19 07:57 MCV 82.5 fL (81.0-99.0) 03/03/19 07:57 MCH 26.7 pg (27.0-31.0) L 03/03/19 07:57 MCHC 32.4 g/dL (33.0-37.0) L 03/03/19 07:57 RDW 19.8 % (11.5-14.5) H 03/03/19 07:57 Plt Count 309 K/uL (130-400) 03/03/19 07:57 MPV 9.0 fL (7.2-11.7) 03/03/19 07:57 Neut % (Auto) 66.1 % (50.0-75.0) 03/03/19 07:57 Lymph % (Auto) 24.3 % (20.0-40.0) 03/03/19 07:57 Burnett % (Auto) 8.0 % (0.0-10.0) 03/03/19 07:57 Eos % (Auto) 1.1 % (0.0-4.0) 03/03/19 07:57 Baso % (Auto) 0.5 % (0.0-2.0) 03/03/19 07:57 Neut # (Auto) 5.3 K/uL (1.8-7.0) 03/03/19 07:57 Lymph # (Auto) 2.0 K/uL (1.0-4.3) 03/03/19 07:57 Burnett # (Auto) 0.6 K/uL (0.0-0.8) 03/03/19 07:57 Eos # (Auto) 0.1 K/uL (0.0-0.7) 03/03/19 07:57 Baso # (Auto) 0.0 K/uL (0.0-0.2) 03/03/19 07:57 ESR 14 mm/hr (0-20) 03/03/19 01:02 Sodium 138 mmol/L (132-148) 03/03/19 07:57 Potassium 3.8 mmol/L (3.6-5.2) 03/03/19 07:57 Chloride 102 mmol/L (98-107) 03/03/19 07:57 Carbon Dioxide 24 mmol/L (22-30) 03/03/19 07:57 Anion Gap 15 (10-20) 03/03/19 07:57 BUN 18 mg/dL (7-17) H 03/03/19 07:57 Creatinine 1.0 mg/dL (0.7-1.2) 03/03/19 07:57 Est GFR ( Amer) > 60 03/03/19 07:57 Est GFR (Non-Af Amer) 59 03/03/19 07:57 Random Glucose 96 mg/dL (65-105) D 03/03/19 07:57 Hemoglobin A1c 5.6 % (4.2-6.5) 03/03/19 07:57 Calcium 9.3 mg/dl (8.6-10.4) 03/03/19 07:57 Phosphorus 3.2 mg/dL (2.5-4.5) 03/03/19 07:57 Magnesium 2.0 mg/dL (1.6-2.3) 03/03/19 07:57 Total Bilirubin 0.7 mg/dL (0.2-1.3) 03/03/19 07:57 AST 52 U/L (14-36) H D 03/03/19 07:57 ALT 38 U/L (9-52) 03/03/19 07:57 Alkaline Phosphatase 79 U/L (38-126) 03/03/19 07:57 Troponin I < 0.0120 ng/mL (0.00-0.120) 03/02/19 18:03 Total Protein 7.3 g/dL (6.3-8.3) 03/03/19 07:57 Albumin 4.3 g/dL (3.5-5.0) 03/03/19 07:57 Globulin 3.0 gm/dL (2.2-3.9) 03/03/19 07:57 Albumin/Globulin Ratio 1.5 (1.0-2.1) 03/03/19 07:57 Triglycerides 36 mg/dL (0-149) 03/03/19 07:57 Cholesterol 160 mg/dL (0-199) 03/03/19 07:57 LDL Cholesterol Direct 79 mg/dL (0-129) 03/03/19 07:57 HDL Cholesterol 69 mg/dL (30-70) 03/03/19 07:57 Lipase 62 U/L (23-300) 03/02/19 18:03 TSH 3rd Generation 1.65 mIU/L (0.46-4.68) 03/03/19 07:57 - Hospital Course Hospital Course: On admission: 48F presents to the ER for second time today complaining of Headaches, dizziness, hazy vision/aura and photosensitivity. Pt recieved Hydralizine x2 and had some improvement, was discharged but then had an acute recurrence of the headache when getting on the bus. Pt returned with an SBP of over 200 and was given Hydralazine 20 IVP which gave her minor relief. Pt also reports minor relief with the Toradol. Pt had came in earlier today also complaining of lower abdominal pain which has now resolved. Patient states that she history of ovarian cyst which was diagnosed in [place]. Patient reports that she also has history of HTN but she is not taking medications. During hospital stay: Patient was given indomethacin for migraine with good response. Head CT was done which was negative for acute intracranial pathology. Abdomen/pelvis/transvaginal ultrasound was done which showed Uterus: 10.1 x 5.0 x 6.2 centimeters. Heterogeneous echotexture. Anteverted. Endometrium is prominent measuring up to 1.33 centimeters. Small amount of free fluid within the pelvic cul-de-sac. Right ovary: Not well visualized. Free fluid adjacent to the right adnexa. Left ovary: 3.0 x 2.2 x 2.5 centimeters. Normal flow. Heterogeneous hypoechoic cyst/cystic lesion in the left ovary measuring up to 1.4 x 0.9 x 1.5 centimeters. Nabothian cysts noted at the level of the cervix. Study limited secondary to patient body habitus. OBGYN was consulted, advised that left lower quadrant pain was most likely due to probable menses onset suggested by thickened endometrium, no acute gynecological intervention indicated. Patient was also found to be hypokalemic on labs, potassium was repleted. Patient was started on regimen of HCTZ 25 mg PO daily and Norvasc 10 mg PO daily. Patient's symptoms improved and was optimized for discharge. Patient was provided prescriptions for HCTZ, Norvasc, and Aspirin and referrals to follow up in [facility] and neurologist Dr. Mullins. Please see EMR for full details. Discharge Exam - Head Exam Head Exam: ATRAUMATIC, NORMAL INSPECTION - Eye Exam Eye Exam: EOMI, Normal appearance, PERRL - ENT Exam ENT Exam: Mucous Membranes Moist - Neck Exam Neck exam: Full Rom - Respiratory Exam Respiratory Exam: Clear to PA & Lateral, NORMAL BREATHING PATTERN. absent: Rales, Rhonchi, Respiratory Distress - Cardiovascular Exam Cardiovascular Exam: REGULAR RHYTHM, +S1, +S2. absent: Tachycardia - GI/Abdominal Exam GI & Abdominal Exam: Normal Bowel Sounds, Soft. absent: Distended, Firm, Tenderness - Extremities Exam Extremities exam: normal inspection - Neurological Exam Neurological exam: Alert, CN II-XII Intact, Oriented x3 - Psychiatric Exam Psychiatric exam: Normal Affect, Normal Mood - Skin Skin Exam: Dry, Intact, Warm Discharge Plan - Discharge Medications Prescriptions: amLODIPine [Norvasc] 10 mg PO DAILY #30 tab Aspirin [Ecotrin] 81 mg PO DAILY #30 tablet. hydroCHLOROthiazide [Hydrodiuril] 25 mg PO DAILY #30 tab - Follow Up Plan Condition: FAIR Disposition: HOME/ ROUTINE Instructions: DASH Diet, Low Salt Diet, Amlodipine, Hydrochlorothiazide, Acute Abdominal Pain (DC), Hypertension (DC) Additional Instructions: Please follow up with your primary medical doctor within one-two weeks. An appointment has been made for you at the [facility] for March 16 at 3PM. Please complete your Joaquina Care prior to the appointment. Bring your photo ID and arrive 15 minutes before your appointment. Also follow up with neurologist Dr. Mullins within one-two weeks. Take your Norvasc, Hydrochlorothiazide, and Aspirin as prescribed. Keep a log of your blood pressures and headaches and bring these logs to your appointments. You can download an cynthia on your smartphone to keep track of your headaches. Drink plenty of fluids and stay hydrated Return to ED if symptoms return or worsen. Por favor, consulte a wells mdico de cabecera dentro de sylvia o dos semanas. Se john programado sylvia danny para usted en la [facility] para el a las 3PM. Por favor complete wells Atencin de Ashleigh antes de la danny. Traiga wells identificacin con foto y llegue 15 minutos antes de wells danny. Tambin coretta un seguimiento con el neurlogo Dr. Mullins dentro de sylvia o dos semanas. [place] wells Norvasc y Hydrochlorothiazide y Aspirin segn lo prescrito. Mantenga un registro de mariam presiones sanguneas y madelin de zak y lleve estos registros a mariam citas. Puede descargar sylvia aplicacin en wells telfono inteligente para realizar un seguimiento de mariam madelin de zak. Cyndie muchos lquidos y mantente hidratado. Regrese a la ED si los sntomas regresan o empeoran. Referrals: [facility] at [facility] [Outside] Gallo Phillip MD [Staff Provider] - Kelsey Mullins MD [Staff Provider] -
[2019-03-03 16:34] VITALS: BP 165/93; PULSE 59; TEMP 98.7; O2SAT 97
--- NOTE | 2019-03-03 23:58 | CARD ---
APPROVED REPORT Date of service: 03/02/2019 EKG Measurement Heart [id number] <Conclusion> Normal sinus rhythm Possible Left atrial enlargement Left ventricular hypertrophy with repolarization abnormality Prolonged QT Abnormal ECG
== END 2019-03-03 17:15 | disposition home or self-care (01) ==
LOC: C.ER 17:06 → C.9E 21:18 → C.6T 21:38
PROVIDERS: ADMIT Emergency Medicine; ATTEND Emergency Medicine
DX: I16.0 Hypertensive urgency (principal); G43.109 Migraine with aura, not intractable, without status migrainosus; N83.202 Unspecified ovarian cyst, left side; I10 Essential (primary) hypertension; E87.6 Hypokalemia; W19.XXXA Unspecified fall, initial encounter; Z91.14 Patient's other noncompliance with medication regimen; Z80.0 Family history of malignant neoplasm of digestive organs; Z82.49 Family history of ischemic heart disease and other diseases of the circulatory system
CPT/HCPCS: 36415; 70450; 71046; 76830; 76856; 80053; 80061; 83036; 83690; 83735; 84100; 84443; 84484; 85025; 85651; 93005; 96360; 96374; 99285; G0378; J0360; J1650; J1885; J2405; J7030